=== PATIENT | male | born 1955 | race African-American/Black ===

== ENCOUNTER 2023-10-31 08:01 | Emergency (ER) | payer MEDICARE, MEDICAID ==
[~2023-10-31] VITALS: Ht 175.3 cm; Wt 79.0 kg
[~2023-10-31 08:01] MED LIST: FOLI-43 PO; KEPP500 MT; LACT10SO7 MT; MIRT-89 PO; ZOLP10TA2 PO
[2023-10-31 08:07] VITALS: O2SAT 100
[2023-10-31] MEDS: LEVETIRACETAM 500MG PREMIX 100 ML IV ONE (08:49)
[2023-10-31 09:08] LABS: BASOPHILS % 0.9 % (0.0-2.0); EOSINOPHILS % 2.6 % (0.0-5.0); HEMATOCRIT. 43.9 % (42.0-52.0); LYMPHOCYTES % 29.3 % (20.0-50.0); MEAN CORPUSCULAR HEMOGLOBIN 26.4 pg (28.0-32.0); MEAN CORPUSCULAR HGB CONC 31.9 g/dL (31.0-37.0); MEAN CORPUSCULAR VOLUME 82.7 fL (80.0-94.0); MEAN PLATELET VOLUME 7.6 fl (7.4-10.4); MONOCYTES % 7.3 % (2.0-8.0); NEUTROPHILS % 59.9 % (40.0-76.0); PLATELET 390 x1000/uL (130-400); RED BLOOD CELL COUNT 5.31 mill/uL (4.7-6.1); RED CELL DISTRIBUTION WIDTH 14.8 % (11.6-14.6); WHITE BLOOD COUNT 9.1 x1000/uL (4.5-11.0)
[2023-10-31 09:32] LABS: CHLORIDE 107 mEq/L (98-107); POTASSIUM 3.7 mEq/L (3.5-5.1); SODIUM 141 mEq/L (136-145)
[2023-10-31 09:33] LABS: CARBON DIOXIDE 16 mEq/L (21-32)
[2023-10-31 09:34] LABS: CALCIUM 9.4 mg/dL (8.7-10.4)
[2023-10-31 09:38] LABS: CREATININE 1.1 mg/dL (0.6-1.3); GLUCOSE 144 mg/dL (70-105); UREA NITROGEN BLOOD 10 mg/dL (9-23)
[2023-10-31 09:40] LABS: ALANINE AMINOTRANSFERASE 27 IU/L (10-49); ALBUMIN 4.3 g/dL (3.2-4.8); ASPARTATE AMINOTRANSFERASE 22 IU/L (<34)
[2023-10-31 09:41] LABS: BILIRUBIN TOTAL 0.2 mg/dL (0.1-1.0); PROTEIN TOTAL 7.3 g/dL (6.0-8.3)
[2023-10-31 09:46] LABS: ETHANOL BLOOD < 10 mg/dL (<10)
[2023-10-31 10:00] VITALS: TEMP 98
[2023-10-31 11:35] VITALS: BP 129/78; PULSE 81; RESP 17
== END 2023-10-31 11:37 | disposition home or self-care (01) ==
LOC: ER 08:01
DX: R56.9 Unspecified convulsions (principal); I10 Essential (primary) hypertension; F12.10 Cannabis abuse, uncomplicated; Z86.73 Personal history of transient ischemic attack (TIA), and cerebral infarction without residual deficits
CPT/HCPCS: 80053; 80320; 85025; 36415; 96365; 99284; J1953; G0480